=== PATIENT | female | born 1975 | race Caucasian/White ===

== ENCOUNTER 2018-07-31 05:45 | Observation (INO) | payer BC ==
[~2018-07-31] VITALS: Ht 165.1 cm; Wt 99.8 kg
[~2018-07-31 05:45] MED LIST: ARMOUR THYROID60 MG PO; BUSPIRONE HCL5 MG PO; CLONAZEPAM0.5 MG PO; FAMOTIDINE20 MG PO; NEXIUM40 MG PO; ONDANSETRON2 MG/1 ML PO; PROMETHAZINE HC25 M1 PO; SUCRALFATE1 GM PO
--- OUTSIDE RECORDS SUMMARY | 2018-07-31 05:49 | XMS REPORT | Clinical Summary ---
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 Active thyroid,pork (ARMOUR Take 0.5 mg 0 THYROID ORAL) by mouth. Active SAXENDA 3 mg/0.5 mL (18 INJ 3 MG 0 mg/3 mL) pen injector SUBCUTANEOUSL 8 Y QD FOR 90 DAYS 08/12/2018 Active sucralfate (CARAFATE) 1 Take 1 tablet 120 tablet 0 gram tablet (1 g total) 9 by mouth 4 (four) times a day for 30 days. 08/12/2018 Active promethazine (PHENERGAN) Take 1 tablet 20 tablet 0 12.5 MG tablet (12.5 mg 9 total) by mouth nightly as needed for nausea or vomiting for up to 30 days. 07/13/2019 Active famotidine (PEPCID) 40 MG Take 1 tablet 60 tablet 0 tablet (40 mg total) 9 by mouth 2 (two) times a day. Active esomeprazole (NexIUM) 40 Take 1 60 capsule 0 MG capsule capsule (40 9 mg total) by mouth 2 (two) times a day. 10/24/2018 Active sertraline (ZOLOFT) 25 MG Take 1 tablet 30 tablet 2 tabletIndications: (25 mg total) 9 Anxiety, Insomnia due to by mouth other mental disorder nightly for 90 days. 08/10/2018 Active zolpidem CR (AMBIEN CR) Take 1 tablet 15 tablet 1 6.25 MG CR (6.25 mg 9 tabletIndications: total) by Insomnia due to other mouth nightly mental disorder as needed for sleep for up to 15 days. 05/08/2018 Discontinued gabapentin 300 mg tablet Take 600 mg 0 extended release 24 hr by mouth 3 (three) times a day. 12/19/2017 Discontinued amLODIPine (NORVASC) 5 mg Take 5 mg by 0 tablet mouth every morning. 12/27/2017 Discontinued estradiol (ESTRACE) 1 MG Take 1 mg by 0 tablet mouth nightly. 12/27/2017 Discontinued amphetamine-dextroampheta Take 20 mg by 0 mine XR (ADDERALL XR) 20 mouth every MG 24 hr capsule morning. 12/19/2017 Discontinued losartan-hydrochlorothiaz Take 1 tablet 0 mellissa (HYZAAR) 50-12.5 mg by mouth per tablet daily. 12/19/2017 Discontinued esomeprazole (NexIUM) 20 Take 20 mg by 0 MG capsule mouth daily before breakfast. 12/27/2017 Discontinued morPHINE (MSIR) 15 MG TK 1 T PO TID 0 tablet PRN FOR 8 BREAKTHROUGH PAIN 12/27/2017 Discontinued phentermine (ADIPEX-P) TAKE ONE-HALF 3 37.5 mg tablet (1/2) 8 TABLET(S) BY MOUTH EVERY DAY. 12/27/2017 Discontinued LYRICA 100 mg capsule TK 1 C PO TID 0 8 01/04/2018 Discontinued liraglutide (SAXENDA Inject 3 mg 0 SUBQ) under the skin. 12/19/2017 Discontinued levothyroxine (SYNTHROID, Take 75 mcg 0 LEVOXYL) 75 mcg tablet by mouth every morning. 05/08/2018 Discontinued oxyCODone (ROXICODONE) 10 Take 10 mg by 0 MG tablet mouth 3 (three) times a day as needed. 05/08/2018 Discontinued tiZANidine (ZANAFLEX) 4 Take 4 mg by 0 MG tablet mouth 3 (three) times a day. 05/08/2018 Discontinued liothyronine (CYTOMEL) 5 Take 5 mcg by 0 MCG tablet mouth daily. 01/24/2018 Discontinued amLODIPine (NORVASC) 5 mg Take 1 tablet 90 tablet 1 tabletIndications: (5 mg total) 8 Essential hypertension by mouth every morning for 180 days. 01/04/2018 Discontinued esomeprazole (NexIUM) 20 Take 1 90 capsule 1 MG capsuleIndications: capsule (20 8 Gastroesophageal reflux mg total) by disease with esophagitis mouth daily before breakfast for 180 days. 05/08/2018 Discontinued levothyroxine (SYNTHROID, Take 1 tablet 90 tablet 1 LEVOXYL) 75 mcg (75 mcg 8 tabletIndications: total) by Hypothyroidism due to mouth every Dexter's thyroiditis morning for 180 days. 01/24/2018 Discontinued losartan-hydrochlorothiaz Take 1 tablet 90 tablet 1 mellissa (HYZAAR) 50-12.5 mg by mouth 8 per tabletIndications: daily for 180 Essential hypertension days. 05/08/2018 Discontinued DULoxetine (CYMBALTA) 60 Take 1 1 MG capsule capsule by 8 mouth daily. 02/03/2018 apixaban (ELIQUIS) 5 mg follow 74 tablet 5 (74 tabs) tablets,dose package 8 pack instructions 01/24/2018 Discontinued lidocaine (LIDODERM) 5 % Place 1 patch 30 patch 0 on the skin 8 daily for 30 days. Remove & Discard patch within 12 hours or as directed by 01/12/2018 cephalexin (KEFLEX) 500 Take 1 14 capsule 0 MG capsule capsule (500 8 mg total) by mouth 2 (two) times a day for 7 days. 01/24/2018 Discontinued acetaminophen-codeine TK 1 TO 2 TS 0 (TYLENOL WITH CODEINE #3) PO Q 4 TO 6 H 8 300-30 mg per tablet PRF MODERATE TO SEVERE PAIN 01/11/2018 Discontinued phenazopyridine Take 200 mg 0 (PYRIDIUM) 200 MG tablet by mouth. 4 01/11/2018 Discontinued sertraline (ZOLOFT) 25 MG Take 25 mg by 0 tablet mouth. 3 01/24/2018 Discontinued traMADol (ULTRAM) 50 mg Take 50 mg by 0 tablet mouth. 4 07/13/2018 Discontinued valACYclovir (VALTREX) Take 500 mg 0 500 MG tablet by mouth 3 daily as needed. 01/11/2018 Discontinued venlafaxine XR Take 37.5 mg 0 (EFFEXOR-XR) 37.5 MG 24 by mouth. 3 hr capsule 01/25/2018 Discontinued doxylamine (UNISON) 25 mg Take 2 30 tablet 0 tabletIndications: tablets (50 8 Insomnia due to medical mg total) by condition mouth nightly as needed for sleep for up to 30 days. May use 1 tablet. 02/10/2018 triamcinolone (KENALOG) Apply 30 g 0 0.1 % creamIndications: topically 2 8 Irritant dermatitis (two) times a day for 30 days. 2018 Discontinued sennosides-docusate Take 2 60 tablet 1 sodium (SENNA WITH tablets by 8 DOCUSATE SODIUM) 8.6-50 mouth nightly mg per tablet as needed for constipation. 04/05/2018 Discontinued polyethylene glycol Take 17 g by 30 packet 1 (MIRALAX) 17 gram packet mouth daily 8 as needed for constipation. 01/26/2018 Discontinued FLUCELVAX QUAD 3436-4912 0 60 mcg (15 mcg x 4)/0.5 8 mL suspension 07/24/2018 Discontinued M-M-R II, PF, 0 1,000-12,500 TCID50/0.5 8 mL injection 04/25/2018 Discontinued amitriptyline (ELAVIL) 50 Take 1 tablet 90 tablet 1 MG tabletIndications: (50 mg total) 8 Insomnia due to medical by mouth condition nightly. 03/27/2018 ferrous gluconate Take 1 tablet 15 tablet 1 (FERGON) 324 MG (324 mg 8 tabletIndications: BRBPR total) by (bright red blood per mouth every rectum) other day for 60 days. 05/08/2018 Discontinued sennosides-docusate Take 2 180 tablet 0 sodium (SENNA WITH tablets by 9 DOCUSATE SODIUM) 8.6-50 mouth nightly mg per tablet as needed for constipation. 05/08/2018 Discontinued polyethylene glycol Take 17 g by 30 packet 1 (MIRALAX) 17 gram packet mouth daily 9 as needed for constipation. 06/05/2018 Discontinued amitriptyline (ELAVIL) 50 TAKE 1 90 tablet 0 MG tabletIndications: TABLET(50 MG) 9 Insomnia due to medical BY MOUTH condition EVERY NIGHT 05/08/2018 Discontinued RN MATERNITY THYROID 30 mg tablet 1 tablet 2 daily. 9 05/08/2018 Discontinued RN MATERNITY THYROID 15 mg tablet 1 tablet 2 daily. 9 07/13/2018 Discontinued ELIQUIS 5 mg tablet 1 tablet 2 0 (two) times a 9 day. 07/13/2018 Discontinued esomeprazole (NexIUM) 20 1 capsule 1 MG capsule daily. 9 05/15/2018 ondansetron (ZOFRAN) 4 MG Take 1 tablet 21 tablet 0 tabletIndications: Nausea (4 mg total) 9 by mouth every 8 (eight) hours as needed for nausea or vomiting for up to 7 days. 06/07/2018 hydrOXYzine (ATARAX) 25 Take 1 tablet 90 tablet 0 MG tabletIndications: (25 mg total) 9 Anxiety by mouth every 8 (eight) hours as needed for itching or anxiety for up to 30 days. 07/13/2018 Discontinued amitriptyline (ELAVIL) 50 TAKE 1 90 tablet 1 MG tabletIndications: TABLET(50 MG) 9 Insomnia due to medical BY MOUTH condition EVERY NIGHT 07/13/2018 Discontinued esomeprazole (NexIUM) 40 Take 1 60 capsule 0 MG capsule capsule (40 9 mg total) by mouth daily. 07/23/2018 ondansetron ODT (ZOFRAN Take 1 tablet 30 tablet 0 ODT) 4 MG disintegrating (4 mg total) 9 tablet by mouth every 8 (eight) hours as needed for nausea or vomiting for up to 10 days. 07/26/2018 Discontinued busPIRone (BUSPAR) 7.5 MG Take 1 tablet 90 tablet 1 tabletIndications: (7.5 mg 9 Anxiety about health total) by mouth 3 (three) times a day. 07/26/2018 Discontinued clonAZEPAM (KlonoPIN) 0.5 Take 1 tablet 15 tablet 0 MG tabletIndications: (0.5 mg 9 Anxiety about health total) by mouth nightly as needed for anxiety for up to 15 days. Status Hospital, Clinic, or Ordered Dose Route Frequency Start End Date Other Facility Date Administered Medication Ended keTOROlac (TORadol) 60 mg IM once 05/09/19 injection 60 19 9 mgIndications: Migraine with aura and with status migrainosus, not intractable Active Problems Problem Noted Date Attention deficit hyperactivity disorder (ADHD), predominantly inattentive 07/24/2018 type Anxiety about health 07/24/2018 Chest pain on breathing 01/24/2018 Pulmonary emboli 01/05/2018 Pulmonary embolus 01/04/2018 Last Assessment & Plan: The patient has surgery provoked PE. She will need anticoagulation for 6 months (through Jul 04 2018.) Discussed natural resolution and advised against flying to [place] at this time. 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 Will follow up post surgery General weight loss/lifestyle modification strategies discussed (elicit support from others; identify saboteurs; non-food rewards, etc). Essential hypertension 04/13/2017 Spinal stenosis at L4-L5 level 05/08/2014 Resolved Problems Problem Noted Date Resolved Date Rectal bleeding 02/13/2017 12/19/2017 Tobacco abuse 11/14/2011 12/19/2017 Breast nodule 11/14/2011 12/19/2017 Encounters Care Team Description Date Type Specialty Edgar Jones MD Anxiety (Primary Dx); Insomnia due to other mental disorder 07/26/2018 Orders Only Internal Medicine Edgar Jones MD Anxiety about health (Primary Dx); Attention deficit hyperactivity disorder (ADHD), predominantly inattentive type; Hiatal hernia 07/24/2018 Office Visit Internal Medicine Mabel Deal MD Gastroesophageal reflux disease with esophagitis (Primary Dx); Hiatal hernia 07/13/2018 Office Visit Internal Medicine Yuridia Raman, PARTHA 07/13/2018 Telephone Access Yuridia Raman RN 07/13/2018 Nurse Triage Access [facility] [place] 07/04/2018 Telephone Family Medicine Edgar Jones MD 06/29/2018 Telephone Family Medicine Edgar Jones MD Insomnia due to medical condition 06/05/2018 Refill Internal Medicine Michelle Bone MD Edema, unspecified type 05/24/2018 Hospital Procedural Cardiology Encounter Edgar Jones MD Cervicalgia (Primary Dx); Occipital neuralgia of left side; Nausea; Anxiety; Migraine with aura and with status migrainosus, not intractable 05/08/2018 Office Visit Internal Medicine Yuridia Raman RN 05/05/2018 Telephone Access Yuridia Raman RN 05/05/2018 Nurse Triage Access Edgar Jones MD Insomnia due to medical condition 04/25/2018 Refill Internal Medicine Nell Houston 2018 Refill Family Medicine Edgar Jones MD 2018 Refill Family Medicine Michelle Bone MD Edema, unspecified type (Primary Dx) 02/28/2018 Transcribe Access Orders Michelle Bone MD Acute bronchitis, unspecified organism 02/16/2018 Hospital Radiology Encounter Nell [facility] 02/16/2018 Telephone Family Medicine Michelle Bone MD Acute bronchitis, unspecified organism (Primary Dx) 02/16/2018 Transcribe Access Orders Yanci Logan RN 01/27/2018 Documentation General Surgery Edgar Jones MD Pleurisy without effusion (Primary Dx); BRBPR (bright red blood per rectum); Fatigue due to sleep pattern disturbance; Suture check 01/26/2018 Office Visit Internal Medicine Graciela Barth MA Insomnia due to medical condition (Primary Dx) 01/25/2018 Telephone Internal Medicine Ruzi Johnston MD Yerramadha, Muralidhar Reddy, MD Chest pain on breathing (Primary Dx); BRBPR (bright red blood per rectum); Pleuritic chest pain; Anticoagulated by anticoagulation treatment; Anemia, unspecified type 01/24/2018 Emergency Emergency Medicine 01/24/2018 Travel Edgar Jones MD Constipation in female (Primary Dx) 01/23/2018 Orders Only Internal Medicine Patti Lambert RN 01/23/2018 Nurse Triage Access Jean-Paul Godoy MD Chronic pain syndrome (Primary Dx) 01/13/2018 Office Visit Edgar Juan MD Hospital discharge follow-up (Primary Dx); Chronic bilateral low back pain without sciatica; Essential hypertension; Other acute pulmonary embolism without acute cor pulmonale (HCC); Insomnia due to medical condition; Irritant dermatitis 01/11/2018 Office Visit Internal Medicine Edgar Jones MD 01/09/2018 Telephone Family Medicine Naresh Johnson, PharmD 01/09/2018 Patient Quality Outreach Edgar Jones MD 01/09/2018 Telephone Family Medicine Graciela Barth MA 01/06/2018 Orders Only Internal Medicine Nikki Bautista MD Yerramadha, Muralidhar Reddy, MD Other acute pulmonary embolism without acute cor pulmonale (HCC) (Primary Dx); Urinary tract infection without hematuria, site unspecified; RUQ pain; Essential hypertension; Dorsalgia of lumbosacral region; Morbid obesity due to excess calories (HCC); Chronic pain syndrome; Chronic bilateral low back pain without sciatica 01/04/2018 Hospital General Internal Medicine - Encounter 01/05/2018 Graciela Barth MA 01/04/2018 Telephone Internal Medicine Ольга Adams RN 01/04/2018 Nurse Triage Access Jean-Paul Godoy MD THORACIC LAMINECTOMY FOR SPINAL CORD STIMULATOR IMPLANT 12/28/2017 Surgery General Surgery Pura Cano FNP-C 12/28/2017 Anesthesia General Surgery Event Jean-Paul Godoy MD 12/28/2017 Hospital General Surgery Encounter Jean-Paul Godoy MD Chronic pain syndrome (Primary Dx); Chronic bilateral low back pain without sciatica; Lumbar degenerative disc disease; History of fusion of lumbar spine 12/26/2017 Orders Only Edgar Juan MD 12/20/2017 Telephone Internal Medicine Edgar Jones MD Pre-operative clearance for spinal stimulator placement for chronic lumbar dorsalgia. 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; Essential hypertension; Gastroesophageal reflux disease with esophagitis; Cold sore 12/19/2017 Office Visit Internal Medicine Jean-Paul Godoy MD Chronic pain syndrome (Primary Dx); Chronic bilateral low back pain without sciatica 12/15/2017 Office Visit Neurosurgery Jean-Paul Godoy MD Lumbar degenerative disc disease (Primary Dx); Chronic bilateral low back pain, with sciatica presence unspecified; History of fusion of lumbar spine 10/20/2017 Office Visit Neurosurgery [facility] Baldo 10/06/2017 Telephone Neurosurgery Stephania Peres NP Bilateral lumbar radiculopathy (Primary Dx); Chronic bilateral low back pain with bilateral sciatica 09/23/2017 Orders Only Neurosurgery Karen Gaming MD West, George Alexander, MD Chronic bilateral low back pain with bilateral sciatica; Bilateral lumbar radiculopathy 09/20/2017 Hospital Radiology Encounter Jean-Paul Godoy MD Chronic bilateral low back pain with bilateral sciatica (Primary Dx); Bilateral lumbar radiculopathy 09/16/2017 Consult Neurosurgery Emiliano Oquendo MD Swelling of left lower extremity (Primary Dx) 08/01/2017 Emergency Emergency Medicine after 07/30/2017 Immunizations Name Dates Previously Given Next Due INFLUENZA QUAD 01/20/2018 Family History Medical History Relation Name Comments Heart disease Father Hyperlipidemia Father Hypertension Father Stroke Father Breast cancer Mother Hyperlipidemia Mother Hypertension Mother Relation Name Status Comments Father Alive Mother Alive Social History Date Tobacco Use Types Packs/Day Years Used Current Every Day Smoker Cigarettes, 0.25 20 Electronic Cigarettes Smokeless Tobacco: Never Used Tobacco Cessation: Ready to Quit: No Comments: 2-3 cig per day Alcohol Use Drinks/Week oz/Week Comments Yes rarely Sex Assigned at Date Recorded Not on file Industry Job Start Date Occupation Not on file Not on file Not on file Travel End Travel History Travel Start No recent travel history available. Last Filed Vital Signs Time Taken Vital Sign Reading 07/24/2018 11:17 AM CDT Blood Pressure 128/91 07/24/2018 11:17 AM CDT Pulse 96 07/13/2018 1:42 PM CDT Temperature 37 C (98.6 F) 01/24/2018 7:56 PM [employer] Respiratory Rate 18 07/13/2018 1:42 PM CDT Oxygen Saturation 99% - Inhaled Oxygen - Concentration 07/24/2018 11:17 AM CDT Weight 96.7 kg (213 lb 3.2 oz) 07/24/2018 11:17 AM CDT Height 162.6 cm (5' 4") 07/24/2018 11:17 AM CDT Body Mass Index 36.6 Plan of Treatment Health Maintenance Due Date Last Done Comments INFLUENZA VACCINE 09/07/2018 01/20/2018 Implants Device Identifier Shelf Expiration Date Model / Serial / Lot Implanted Type Area Manufactur er 10/10/2019 [place] 1160 / / [id number] Wavewriter Implantable Pulse G - IPM N/A: [employer] [id number] IMPLANT SCIENTIFIC Implanted: Qty: 1 on 12/28/2017 by DEVICES - Jean-Paul Godoy MD NEUROMODUL ATION 07/14/2019 [place] 8336 50 / / [id number] Kit Surgl Lead 50cm 32contact - IPM N/A: [employer] [id number] IMPLANT SCIENTIFIC Implanted: Qty: 1 on 12/28/2017 by JOAN - Jean-Paul Godoy MD NEUROMODUL ATION Stimulator Stimulator Surgical Implants - Breast Surgical Implants - Breast 05/17/2018 FGS [id number] / / [id number] Capsule Ph W/ Ds Mckay - [id number] Surgical N/A: N/A GIVEN Implanted: 06/22/2017 (Quantity not Implants; IMAGING on file) Expanders; Extenders; Surgical Wires Procedures Comments Procedure Name Priority Date/Time Associated Diagnosis US DUPLEX VENOUS LOWER Routine 05/24/2018 Edema, unspecified type EXTREMITY BILATERAL 5:57 PM CDT XR CHEST 2 VW Routine 02/16/2018 Acute bronchitis, 12:16 PM [employer] WORK[employer] unspecified organism CT ANGIOGRAM PE CHEST STAT 01/24/2018 7:04 PM [employer]ODUCTION WORKER TROPONIN Timed 01/24/2018 4:58 PM [employer] WORKER US DUPLEX VENOUS LOWER STAT 01/24/2018 EXTREMITY BILATERAL 3:45 PM [employer]AG [employer]ODUCTION WORKER HCG QUALITATIVE, URINE Routine 01/24/2018 SCREEN 2:45 PM [employer]AG [employer]ODUCTION WORKER URINALYSIS SCREEN AND Routine 01/24/2018 MICROSCOPY, WITH REFLEX 2:45 PM RAG [employer]ODUCTION WORKER TO CULTURE XR CHEST 1 VW PORTABLE STAT 01/24/2018 2:36 PM RAG [employer]ODUCTION WORKER ECG ED PRELIMINARY Routine 01/24/2018 INTERPRETATION 2:12 PM [employer]AG PRODUCTION WORKER ESTIMATED GFR STAT 01/24/2018 1:50 PM RAG [employer]ODUCTION WORKER PROTHROMBIN TIME WITH INR STAT 01/24/2018 1:50 PM [employer]AG [employer]ODUCTION WORKER PARTIAL THROMBOPLASTIN STAT 01/24/2018 TIME (PTT) 1:50 PM RAG [employer]ODUCTION WORKER B NATRIURETIC PEPTIDE STAT 01/24/2018 1:50 PM RAG [employer]ODUCTION WORKER TROPONIN STAT 01/24/2018 1:50 PM [employer]AG [employer]ODUCTION WORKER COMPREHENSIVE METABOLIC STAT 01/24/2018 PANEL 1:50 PM RAG [employer]ODUCTION WORKER HC COMPLETE BLD COUNT STAT 01/24/2018 W/AUTO DIFF 1:50 PM RAG [employer]ODUCTION WORKER ECG 12-LEAD STAT 01/24/2018 1:42 PM [employer]ODUCTION WORKER US DUPLEX VENOUS LOWER STAT 01/05/2018 EXTREMITY BILATERAL 6:00 PM [employer]AG [employer]ODUCTION WORKER ECHOCARDIOGRAM 2D Routine 01/05/2018 COMPLETE W MMODE SPECTRAL 11:11 AM RAG PRODUCTION WORKER COLOR DOPPLER ([id number]) TROPONIN Timed 01/04/2018 10:00 PM [employer]AG [employer]ODUCTION WORKER TROPONIN Timed 01/04/2018 6:[address] ANGIOGRAM PE CHEST STAT 01/04/2018 12:[address] ABDOMEN PELVIS W STAT 01/04/2018 CONTRAST 12:12 PM RAG [employer]ODUCTION WORKER ESTIMATED GFR STAT 01/04/2018 10:35 AM RAG PRODUCTION WORKER B NATRIURETIC PEPTIDE STAT 01/04/2018 10:35 AM RAG PRODUCTION WORKER TROPONIN STAT 01/04/2018 10:35 AM RAG [employer]ODUCTION WORKER CREATINE KINASE, TOTAL STAT 01/04/2018 (CPK) 10:35 AM RAG [employer]ODUCTION WORKER COMPREHENSIVE METABOLIC STAT 01/04/2018 PANEL 10:35 AM RAG [employer]ODUCTION WORKER HC COMPLETE BLD COUNT STAT 01/04/2018 W/AUTO DIFF 10:35 AM RAG PRODUCTION WORKER XR CHEST 2 VW STAT 01/04/2018 10:30 AM RAG [employer]ODUCTION WORKER URINALYSIS SCREEN AND STAT 01/04/2018 MICROSCOPY, WITH REFLEX 10:28 AM RAG [employer]ODUCTION WORKER TO CULTURE GRAM STAIN STAT 01/04/2018 10:28 AM RAG [employer]ODUCTION WORKER URINE CULTURE STAT 01/04/2018 10:28 AM RAG [employer]ODUCTION WORKER ECG ED PRELIMINARY Routine 01/04/2018 INTERPRETATION 10:04 AM RAG [employer]ODUCTION WORKER MO CRITICAL CARE, E/M Routine 01/04/2018 30-74 MINUTES 10:04 AM RAG PRODUCTION WORKER ECG 12-LEAD STAT 01/04/2018 9:59 AM RAG PRODUCTION WORKER OR FL > 1 HOUR Routine 12/28/2017 9:00 AM RAG [employer]ODUCTION WORKER MO AN ELECTIVE Routine 12/28/2017 ENDOTRACHEAL AIRWAY 7:55 AM RAG [employer]ODUCTION WORKER Procedure Note - Tran Dougherty CRNA - 12/28/2017 7:55 AM RAG [employer]ODUCTION WORKER ANESTHESIA INTUBATION Date/Time: 12/28/2017 7:36 AM Performed by: Tran Dougherty CRNA Authorized by: Andrey De Souza MD Location: OR Urgency: Elective Difficult Airway: No Preoxygena loretta with 100% O2: Yes C-spine Precaution s Maintained Throughout : Yes Mask Ventilatio n: Not attempted Final Airway Type: Endotrache al airway Final Endotrache al Airway: ETT Cuffed: Yes Technique Used: Direct laryngosco py Insertion Site: Oral Blade Type: Desai Laryngosco pe Blade/Vide olaryngosc ope Blade Size: 2 ETT Size (mm): 7.0 Cuff at minimum occlusion pressure: Yes Measured from: Lips ETT to Lips (cm): 20 Placement Verified by: CO2 detection, direct visualizat ion and equal breath sounds Laryngosco pic view: Grade I - full view of glottis Rapid Sequence Induction (RSI): No Modified RSI: No Number of Attempts at Approach: 1 TSH REFLEX TO T4F Routine 12/19/2017 Pre-operative clearance 11:45 AM RAG PRODUCTION WORKER for spinal stimulator placement for chronic lumbar dorsalgia. 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 PROTHROMBIN TIME WITH INR Routine 12/19/2017 Pre-operative clearance 11:41 AM RAG PRODUCTION WORKER for spinal stimulator placement for chronic lumbar dorsalgia. PARTIAL THROMBOPLASTIN Routine 12/19/2017 Pre-operative clearance TIME (PTT) 11:41 AM RAG PRODUCTION WORKER for spinal stimulator placement for chronic lumbar dorsalgia. COMPREHENSIVE METABOLIC Routine 12/19/2017 Pre-operative clearance PANEL 11:41 AM RAG PRODUCTION WORKER for spinal stimulator placement for chronic lumbar dorsalgia. CBC WITH PLATELET AND Routine 12/19/2017 Pre-operative clearance DIFFERENTIAL 11:41 AM RAG PRODUCTION WORKER for spinal stimulator placement for chronic lumbar dorsalgia. XR CHEST 2 VW Routine 12/19/2017 Pre-operative clearance 11:26 AM RAG [employer]ODUCTION WORKER XR LUMBAR SPINE AP Routine 09/20/2017 Chronic bilateral low LATERAL FLEXION AND 3:03 PM CDT back pain with bilateral EXTENSION sciatica Bilateral lumbar radiculopathy US DUPLEX VENOUS LOWER Routine 08/01/2017 EXTREMITY BILATERAL 3:15 PM CDT after 07/30/2017 Results * Us duplex venous lower extremity (05/24/2018 5:57 PM CDT) Only the most recent of 4 results within the time period is included. Specimen Narrative Performed At [email or web address] There is no evidence of DVT in bilateral lower extremities. Performing Organization Address City/State/Zipcode Phone Number [email or web address] [place] [address] * XR Chest 2 Vw (02/16/2018 12:16 PM RAG PRODUCTION WORKER) Only the most recent of 3 results within the time period is included. Specimen Narrative Performed At EXAMINATION:XR CHEST 2 VW RADIANT CLINICAL HISTORY: 42 years [id number] Acute bronchitisunspecified, acute bronchitis COMPARISON:01/24/2018 IMPRESSION: 1.The heart size is normal. The aorta is minimally atherosclerotic. 2.There is no evidence of pulmonary edema. There are no focal consolidations or effusions. 3.Moderate hiatal hernia. 4.Dorsal column stimulator device overlies the mid thoracic spine. Procedure Note Interface, Radiology Results Incoming - 02/16/2018 1:12 PM RAG PRODUCTION WORKER EXAMINATION: XR CHEST 2 VW CLINICAL HISTORY: 42 years Female J20.9 Acute bronchitis unspecified, acute bronchitis COMPARISON: 01/24/2018 IMPRESSION: 1. The heart size is normal. The aorta is minimally atherosclerotic. 2. There is no evidence of pulmonary edema. There are no focal consolidations or effusions. 3. Moderate hiatal hernia. 4. Dorsal column stimulator device overlies the mid thoracic spine. Performing Organization Address City/State/Zipcode Phone Number RADHA [address] [place] [address] * CT Angiogram Pe Chest (01/24/2018 7:04 PM RAG PRODUCTION WORKER) Only the most recent of 2 results within the time period is included. Specimen Narrative Performed At EXAMINATION: [facility] CT ANGIOGRAM PE CHEST CLINICAL HISTORY: left chest pleuritic painrecent dx PE TECHNIQUE: CT angiographic images of the chest were obtained during intravenous administration of iodinated contrast. Computerized reformatted images and 3-D MIP images were also obtained and archived (CT pulmonary embolus protocol). CT imaging was performed with iterative reconstruction techniques and/or automated exposure control to reduce radiation dose. COMPARISON: 01/04/2018 IMPRESSION: 1.There are no pulmonary emboli. Previously seen embolus in the left upper lobe has resolved. 2.There is a large hiatal hernia which causes mild compressive atelectasis in the left lower lobe. 3.Minor dependent bilateral groundglass probably reflects suboptimal inspiration. There is no acute consolidation or suspicious pulmonary nodule. 4.No pleural or pericardial effusion is seen. 5.The heart size is normal. 6.There is no thoracic lymphadenopathy. 7.There is no significant upper abdominal imaging finding. 8.Bilateral breast implants are noted. 9.No significant skeletal abnormality is seen. Spine stimulator device again noted. [id number] Procedure Note Interface, Radiology Results Incoming - 01/24/2018 7:12 PM RAG PRODUCTION WORKER EXAMINATION: CT ANGIOGRAM PE CHEST CLINICAL HISTORY: left chest pleuritic pain recent dx PE TECHNIQUE: CT angiographic images of the chest were obtained during intravenous administration of iodinated contrast. Computerized reformatted images and 3-D MIP images were also obtained and archived (CT pulmonary embolus protocol). CT imaging was performed with iterative reconstruction techniques and/or automated exposure control to reduce radiation dose. COMPARISON: 01/04/2018 IMPRESSION: 1. There are no pulmonary emboli. Previously seen embolus in the left upper lobe has resolved. 2. There is a large hiatal hernia which causes mild compressive atelectasis in the left lower lobe. 3. Minor dependent bilateral groundglass probably reflects suboptimal inspiration. There is no acute consolidation or suspicious pulmonary nodule. 4. No pleural or pericardial effusion is seen. 5. The heart size is normal. 6. There is no thoracic lymphadenopathy. 7. There is no significant upper abdominal imaging finding. 8. Bilateral breast implants are noted. 9. No significant skeletal abnormality is seen. Spine stimulator device again noted. [facility]-[id number] Performing Organization Address City/[facility]/Zipcode Phone Number RADIANT [address] [place] [address] * Troponin (01/24/2018 4:58 PM RAG PRODUCTION WORKER) Only the most recent of 5 results within the time period is included. [facility] Troponin <0.300 0.000 - 0.300 ng/mL ORIENT Comment: [facility] 0.30 - 1.49 [facility] ng/mlMay indicate increased risk of acute coronary syndrome. >=1.5 ng/ml Consistent with acute myocardial infarction. The diagnostic value of a single normal or non-diagnostic result is questionable.Serial samples at 2-6 hour intervals are required to rule out acute myocardial injury. Specimen Plasma specimen Performing Organization Address City/[facility] [place] [address] [place] [address] PATHOLOGY AND GENOMIC MEDICINE [facility] [address] [place] [address] [facility] * Urinalysis screen and microscopy, with reflex to culture (01/24/2018 2:45 PM RAG PRODUCTION WORKER) Only the most recent of 2 results within the time period is included. Pathologist [facility] Specimen site Clean catch [facility] Color, UA Yellow [facility] Appearance, UA Clear [facility] Specific 1.013 1.001 - 1.035 ORIENT gravity, UA [facility] pH, UA 6.0 5.0 - 8.5 [facility] Protein, UA Negative Negative [facility] Glucose, UA Negative Negative [facility] Ketones, UA Negative Negative [facility] Bilirubin, UA Negative Negative [facility] Blood, UA Negative Negative [facility] Nitrite, UA Negative Negative [facility] Urobilinogen, Negative <2.0 [facility] Leukocyte Negative Negative ORIENT esterase, UA [facility] Epithelial Few /HPF ORIENT cells, UA [facility] Round Few 0 - 1 /HPF ORIENT epithelial [facility] cells, [facility] WBC, UA 0-5 0 - 4 /HPF [facility] RBC, UA 0-5 0 - 5 /HPF [facility] Bacteria, UA Trace None seen [facility] Yeast, UA None seen [facility] Yeast with None seen [facility] Specimen Urine Performing Organization Address [facility] Phone Number [address] [place] [address] PATHOLOGY AND GENOMIC MEDICINE [address] * hCG qualitative, urine screen (01/24/2018 2:45 PM RAG PRODUCTION WORKER) hCG Negative Negative ORIENT qualitative, Comment: [facility] urine The manufacturers stated [facility] sensitivity of HcG test for serum is >/=10 mIU/ml and urine is >/=20mIU/ml. Specimen Urine Performing Organization Address [facility] Phone Number [address] [place] [address] PATHOLOGY AND GENOMIC MEDICINE [address] * XR Chest 1 Vw Portable (01/24/2018 2:36 PM RAG PRODUCTION WORKER) Specimen Narrative Performed At EXAMINATION:XR CHEST 1 VW PORTABLE [facility] CLINICAL HISTORY:chest pain COMPARISON:January 04, 2018 FINDINGS: Intraspinal stimulator is noted projecting in the midthoracic spine unchanged from the prior study. A moderately large hiatal hernia also is noted projecting behind the heart and left lower lobe area. The heart size is borderline accentuated by AP technique. The mediastinum is otherwise unremarkable. The lungs are clear. IMPRESSION: 1. The heart is enlarged. 2. Moderately large hiatal hernia no acute finding is visualized [id number] Procedure Note Hm Interface, Radiology Results Incoming - 01/24/2018 2:48 PM RAG PRODUCTION WORKER EXAMINATION: XR CHEST 1 VW PORTABLE CLINICAL HISTORY: chest pain COMPARISON: January 04, 2018 FINDINGS: Intraspinal stimulator is noted projecting in the midthoracic spine unchanged from the prior study. A moderately large hiatal hernia also is noted projecting behind the heart and left lower lobe area. The heart size is borderline accentuated by AP technique. The mediastinum is otherwise unremarkable. The lungs are clear. IMPRESSION: 1. The heart is enlarged. 2. Moderately large hiatal hernia no acute finding is visualized [id number] Performing Organization Address City/State/Zipcode Phone Number [facility] [address] [place] [address] * ECG ED Preliminary Interpretation - Not an Order (01/24/2018 2:12 PM RAG PRODUCTION WORKER) Only the most recent of 2 results within the time period is included. Narrative Performed At Ruiz Johnston MD 01/25/20181:54 AM ECG ED Preliminary Interpretation - Not an Order Performed by: Ruiz Johnston MD Authorized by: Ruiz Johnston MD ECG reviewed by ED Physician in the absence of a supervising editor trailer: yes (read at 1342) Previous ECG: Previous ECG:Unavailable Interpretation: Interpretation: normal Rate: ECG rate:78 ECG rate assessment: normal Rhythm: Rhythm: sinus rhythm Ectopy: Ectopy: none QRS: QRS axis:Normal QRS intervals:Normal Conduction: Conduction: normal ST segments: ST segments:Normal T waves: T waves: inverted Inverted:AVR, V1 and V2 * Estimated GFR (01/24/2018 1:50 PM RAG PRODUCTION WORKER) Only the most recent of 2 results within the time period is included. Pathologist [facility] Estimated GFR 77 mL/min/1.73 m2 ORIENT Comment: [facility] rpretation G1 >=90 Normal or high G2 60-89Mildly decreased [id number] Mildly to moderately decreased [id number] Moderately to severely decreased G4 15-29Severely decreased G5 <15Kidney failure The eGFR was calculated using the Chronic Kidney Disease Epidemiology Collaboration (CKD-EPI) equation. Interpretation is based on recommendations of the National Kidney Foundation-Kidney Disease Outcomes Quality Initiative (NKF-KDOQI) published in 2014. Specimen Plasma specimen Performing Organization Address [facility] [place] Phone Number [address] * Partial thromboplastin time, activated (01/24/2018 1:50 PM RAG PRODUCTION WORKER) Only the most recent of 2 results within the time period is included. Pathologist [facility] PTT 33.7 23.0 - 36.0 sec ORIENT Comment: [facility] PTT therapeutic range for [facility] unfractionated heparin is 61.0-112.0 seconds which corresponds to Anti-Xa 0.3-0.7 U/ml. Specimen Blood Performing Organization Address [facility] [place] Phone Number [address] * Prothrombin time with INR (01/24/2018 1:50 PM RAG PRODUCTION WORKER) Only the most recent of 2 results within the time period is included. Pathologist [facility] Prothrombin 12.2 11.5 - 14.5 [facility] INR 0.9 ORIENT Comment: [facility] The International Normalized [facility] Ratio (INR) is a therapeutic monitoring tool for patients who are stable on oral anticoagulant therapy. An INR of 2.0-3.0 is suggested for deep vein thrombosis/pulmonary embolism. Specimen Blood Performing Organization Address [facility] [place] Phone Number [address] * CBC with platelet and differential (01/24/2018 1:50 PM RAG PRODUCTION WORKER) Only the most recent of 3 results within the time period is included. Pathologist [facility] WBC 6.71 4.50 - 11.00 k/uL [facility] RBC 3.89 (L) 4.20 - 5.50 m/uL [facility] HGB 10.7 (L) 12.0 - 16.0 g/dL [facility] HCT 34.1 (L) 37.0 - 47.0 % [facility] MCV 87.7 82.0 - 100.0 fL [facility] MCH 27.5 27.0 - 34.0 pg [facility] MCHC 31.4 31.0 - 37.0 g/dL [facility] RDW - SD 49.4 37.0 - 55.0 fL [facility] MPV 10.4 8.8 - 13.2 fL [facility] Platelet count 476 (H) 150 - 400 k/uL [facility] Nucleated RBC 0.00 /100 WBC [facility] Neutrophils 41.7 39.0 - 69.0 % [facility] Lymphocytes 36.8 25.0 - 45.0 % [facility] Monocytes 12.8 (H) 0.0 - 10.0 % [facility] Eosinophils 7.6 (H) 0.0 - 5.0 % [facility] Basophils 1.0 0.0 - 1.0 % [facility] Specimen Blood Performing Organization Address City/[facility]/Zipcode Phone Number [address] [place] [address] PATHOLOGY AND GENOMIC MEDICINE [address] * B natriuretic peptide (01/24/2018 1:50 PM RAG PRODUCTION WORKER) Only the most recent of 2 results within the time period is included. BNP 41 0 - 100 pg/mL [facility] Specimen Blood Performing Organization Address City/[facility] Phone Number [address] [place] [address] PATHOLOGY AND GENOMIC MEDICINE [address] * Comprehensive metabolic panel (01/24/2018 1:50 PM RAG PRODUCTION WORKER) Only the most recent of 3 results within the time period is included. [facility] Sodium 140 135 - 148 mEq/L [facility] Potassium 3.9 3.5 - 5.0 mEq/L [facility] Chloride 100 98 - 112 mEq/L [facility] CO2 29 24 - 31 mEq/L [facility] Anion gap 11@ANIO 7 - 15 mEq/L [facility] BUN 13 6 - 20 mg/dL [facility] Creatinine 0.90 0.50 - 0.90 mg/dL [facility] Glucose 84 65 - 99 mg/dL [facility] Calcium 9.7 8.3 - 10.2 mg/dL [facility] Protein 7.5 6.3 - 8.3 g/dL ORIENT Comment: [facility] 4.6-7.0 g/dL 1 week 4.4-7.6 g/dL 7 months-1year 5.1-7.3 g/dL 1-2 years5.6-7 .5 g/dL >3 years6.0-8 .0 g/dL 18-150 6.3-8.3 g/dL Albumin 4.2 3.5 - 5.0 g/dL [facility] A/G ratio 1.3 0.7 - 3.8 [facility] Alkaline 94 35 - 104 U/L ORIENT phosphatase [facility] AST 22 10 - 35 U/L [facility] ALT 20 5 - 50 U/L [facility] Total bilirubin <0.2 0.0 - 1.2 mg/dL [facility] Specimen Plasma specimen Performing Organization Address City/State/Zipcode Phone Number [facility] [id number] [place] [address] [place] [address] PATHOLOGY AND GENOMIC MEDICINE [facility] [id number] [place] [address] [place] [address] [facility] * ECG 12 lead (01/24/2018 1:42 PM RAG PRODUCTION WORKER) Only the most recent of 2 results within the time period is included. Pathologist [facility] Ventricular 78 [facility] MUSE rate Atrial rate 78 [facility] MUSE MO interval 178 [facility] MUSE QRSD interval 76 [facility] MUSE QT interval 390 [facility] MUSE QTC interval 444 [facility] MUSE P axis 1 3 [facility] MUSE QRS axis 1 7 [facility] MUSE T wave axis 30 [facility] MUSE EKG impression Normal sinus rhythm-Normal [facility] MUSE ECG-In automated comparison with ECG of 04-JAN-2018 09:59,-No significant change was found- Specimen Narrative Performed At Performing Organization Address City/State/Zipcode Phone Number [facility] MUSE [address] [place] [address] * Echocardiogram complete w contrast and 3D if needed (01/05/2018 11:11 AM RAG PRODUCTION WORKER) Velocity Ratio 0.78 m/s [facility] (V1/V2) IVS,d 0.67 cm [facility] Ao root annulus 2.73 cm [facility] EF 56.52 % [facility] LA volume 43.00 cm3 [facility] LVPWD,d 0.97 cm [facility] AoV Mean PG 4.29 mmHg [facility] AV LVOT peak 5.66 mmHg [facility] gradient MV valve area p 4.75 cm2 [facility] 1/2 method E/A ratio 1.34 [facility] E wave 159.30 msec [facility] decelartion time LVOT Diam,S 2.16 cm [facility] LVOT area 3.66 cm2 [facility] LVOT Vmax 1.19 m/s [facility] LVOT VTI 0.24 m [facility] AoV Peak PG 9.27 mmHg [facility] MV Peak E Carlos 1.02 m/s [facility] MV stenosis 46.28 ms [facility] pressure 1/2 time MV Peak A Carlos 0.76 m/s [facility] LV Vol,s A2C 30.41 mL [facility] LV Vol,d A2C 68.61 mL [facility] AoV Area, Vmax 2.86 cm2 [facility] AoV Area, VTI 3.16 cm2 [facility] AoV Vmax 1.52 m/s [facility] LA Area d A4C 38 cm2 [facility] LV,d 4.18 cm [facility] LV,s 2.96 cm [facility] LV Vol,d A4C 75.03 ml [facility] LV Vol,s A4C 29.37 ml [facility] RVSP (TR) 31.45 mmHg [facility] TR Vpeak 2.64 mm/s [facility] MV E A ratio 1.35 [facility] RA pressure 5.00 mmHg [facility] TR pk grad 27.83 mmHg [facility] RVSP 31.45 mmHg [facility] LV SYS VOL 33.79 ml [facility] LV MALHOTRA VOL 77.71 ml [facility] LA diam s 3.60 cm [facility] LA Vol MOD A4C 38.44 ml [facility] LV SV Teich 2D 43.92 ml [facility] LVOT SI 45.94 ml/m2 [facility] AoV Cusp sep 1.87 [facility] Aortic Root 2.70 cm [facility] AoV Vmn 0.95 [facility] IVS s 2D 1.11 [facility] LA Ao Ratio 1.33 [facility] Mmode D E excurs 1.40 [facility] E f slope 0.09 [facility] E prime lat 0.12 [facility] E carlos sept 0.12 [facility] PV acc T slope 5.80 [facility] PV AT 134.95 msec [facility] AoV VTI 0.28 m [facility] LV EF,A2C 55.68 % [facility] LV EF,A4C 60.85 % [facility] LV EF,BP 57.43 % [facility] Rashawn Monroe,d A2C 6.22 cm [facility] Rashawn Monroe,d A4C 6.66 cm [facility] Rashawn Monroe,s A2C 4.71 cm [facility] Rashawn Monroe,s A4C 5.27 cm [facility] LV SV,A2C 38.20 % [facility] LV SV,A4C 45.66 % [facility] LV Vol,d BP 74.13 ml [facility] LV Vol,s BP 31.56 nl [facility] LVOT Vmn 0.78 [facility] Pt Size 162.56 [facility] Pt Wt 88.45 [facility] LVOT mean grad 2.76 mmHg [facility] LVPW s PLAX 1.25 cm [facility] MV Decel slope 6.39 m/s2 [facility] Specimen Narrative Performed At [facility] Left ventricular systolic function is normal. Left Ventricular ejection fraction is 60 - 65%. Normal pulmonary artery systolic pressure. RA pressure is normal. Performing Organization Address City/State/Zipcode Phone Number [facility] [address] [place] [address] * CT Abdomen Pelvis W Contrast (01/04/2018 12:12 PM RAG PRODUCTION WORKER) Specimen Narrative Performed At EXAMINATION:CT ABDOMEN PELVIS W CONTRAST [facility] CLINICAL HISTORY: 42 yearsFemale generalized abdominal painrecent surgeryback stimulator TECHNIQUE: Multiple axial images of the abdomen and pelvis were obtained following intravenous administration of iodinated contrast. Sagittal and coronal computerized reformatted images were also obtained. CT imaging was performed with iterative reconstruction techniques and/or automated exposure control to reduce radiation dose. COMPARISON:February 13, 2017 FINDINGS: There is a large hiatal hernia. The liver is mildly enlarged. It measures 19 to 20 cm in length. It is homogeneous in texture. The spleen appears unremarkable. The adrenal glands pancreas and gallbladder appear within normal limits. The kidneys are not obstructed. There appear to be nonobstructing possible lower pole calculi on the left although this is not definitive in this postcontrast study. No large or obstructing stones are identified. The uterus is not visualized and appears to been removed. The ovaries appear unremarkable there is a probable small follicle on the left measuring 16 mm. The appendix appears unremarkable to limits of visualization. The bones demonstrate arthritic changes. There is intraspinal electrode the position of the electrode is not confirmed the pocket for the device is over the right lower abdomen dorsally. Considerable artifact is present no abnormal fluid collections are identified. IMPRESSION: 1. Large hiatal hernia. 2. Mild hepatomegaly. 3. Possible tiny lower pole calculus on the left. 4. Possible small follicle left ovary [id number] Procedure Note Interface, Radiology Results Incoming - 01/04/2018 1:23 PM RAG PRODUCTION WORKER EXAMINATION: CT ABDOMEN PELVIS W CONTRAST CLINICAL HISTORY: 42 yearsFemale generalized abdominal pain recent surgery back stimulator TECHNIQUE: Multiple axial images of the abdomen and pelvis were obtained following intravenous administration of iodinated contrast. Sagittal and coronal computerized reformatted images were also obtained. CT imaging was performed with iterative reconstruction techniques and/or automated exposure control to reduce radiation dose. COMPARISON: February 13, 2017 FINDINGS: There is a large hiatal hernia. The liver is mildly enlarged. It measures 19 to 20 cm in length. It is homogeneous in texture. The spleen appears unremarkable. The adrenal glands pancreas and gallbladder appear within normal limits. The kidneys are not obstructed. There appear to be nonobstructing possible lower pole calculi on the left although this is not definitive in this postcontrast study. No large or obstructing stones are identified. The uterus is not visualized and appears to been removed. The ovaries appear unremarkable there is a probable small follicle on the left measuring 16 mm. The appendix appears unremarkable to limits of visualization. The bones demonstrate arthritic changes. There is intraspinal electrode the position of the electrode is not confirmed the pocket for the device is over the right lower abdomen dorsally. Considerable artifact is present no abnormal fluid collections are identified. IMPRESSION: 1. Large hiatal hernia. 2. Mild hepatomegaly. 3. Possible tiny lower pole calculus on the left. 4. Possible small follicle left ovary [id number] Performing Organization Address [facility]/Zipcode Phone Number [facility] [address] [place] [address] * Creatine kinase, total (CPK) (01/04/2018 10:35 AM RAG PRODUCTION WORKER) Pathologist [facility] Creatine kinase 94 26 - 192 U/L [facility] Specimen Plasma specimen Performing Organization Address [facility]/Zipcode Phone Number [facility] DEPARTMENT [address] [place] [address] PATHOLOGY AND GENOMIC MEDICINE [address] * Gram stain (01/04/2018 10:28 AM RAG PRODUCTION WORKER) Pathologist [facility] Gram stain Few WBC's ALEXANDRE result Occasional Gram negative rods [facility] Comment: HOSPITAL Specimen Information Specimen Source: Urine Specimen Site: Clean catch Specimen Urine Performing Organization Address [facility]/Zipcode Phone Number [facility] DEPARTMENT OF [address] [place] [address] PATHOLOGY AND GENOMIC MEDICINE [address] * Urine culture (01/04/2018 10:28 AM RAG PRODUCTION WORKER) Pathologist [facility] Urine culture Escherichia coli ALEXANDRE isolate >10-5 cfu/ml [facility] Comment: Specimen Information Specimen Source: Urine Specimen Site: Clean catch Specimen Urine Antibiotic Method Susceptibility Organism Ampicillin KITTY <=2 mcg/mL: Susceptible Escherichia coli Amoxicillin/Clavulanate KITTY 4/2 mcg/mL: Susceptible Escherichia coli Amikacin KITTY <=4 mcg/mL: Susceptible Escherichia coli Aztreonam KITTY <=1 mcg/mL: Susceptible Escherichia coli Ceftazidime KITTY <=0.5 mcg/mL: Susceptible Escherichia coli Ciprofloxacin KITTY <=0.5 mcg/mL: Susceptible Escherichia coli Ceftriaxone KITTY <=0.5 mcg/mL: Susceptible Escherichia coli Cefuroxime Sodium KITTY <=4 mcg/mL: Susceptible Escherichia coli Cefazolin KITTY <=1 mcg/mL: Susceptible Escherichia coli Cefepime KITTY <=0.5 mcg/mL: Susceptible Escherichia coli Nitrofurantoin KITTY <=16 mcg/mL: Susceptible Escherichia coli Cefoxitin KITTY <=4 mcg/mL: Susceptible Escherichia coli Gentamicin KITTY <=1 mcg/mL: Susceptible Escherichia coli Imipenem KITTY <=0.25 mcg/mL: Susceptible Escherichia coli Levofloxacin KITTY <=1 mcg/mL: Susceptible Escherichia coli Meropenem KITTY <=0.125 mcg/mL: Susceptible Escherichia coli Tobramycin KITTY 1 mcg/mL: Susceptible Escherichia coli Ampicillin/Sulbactam KITTY 4/2 mcg/mL: Susceptible Escherichia coli Trimethoprim/Sulfamethoxazole KITTY <=0.5/9.5 mcg/mL: Susceptible Escherichia coli Tetracycline KITTY <=1 mcg/mL: Susceptible Escherichia coli Piperacillin/Tazobactam KITTY <=2/4 mcg/mL: Susceptible Escherichia coli Ertapenem KITTY <=0.125 mcg/mL: Susceptible Escherichia coli Tigecycline KITTY <=0.5 mcg/mL: Susceptible Escherichia coli Performing Organization Address City/State/[place] [address] PATHOLOGY AND [place] [address] HOSPITAL * CRITICAL CARE (01/04/2018 10:04 AM RAG PRODUCTION WORKER) Narrative Performed At Nikki Bautista MD 01/06/20189:58 AM Critical Care Performed by: Nikki Bautista MD Authorized by: Nikki Bautista MD Critical care provider statement: Critical care time (minutes):45 Critical care time was exclusive of:Separately billable procedures and treating other patients Critical care was necessary to treat or prevent imminent or life-threatening deterioration of the following conditions:Circulatory failure Critical care was time spent personally by me on the following activities:Development of treatment plan with patient or surrogate, discussions with consultants, evaluation of patient's response to treatment, examination of patient, ordering and performing treatments and interventions, ordering and review of laboratory studies, ordering and review of radiographic studies, pulse oximetry, re-evaluation of patient's condition and obtaining history from patient or surrogate * OR [place] > I Hour (12/28/2017 9:00 AM RAG PRODUCTION WORKER) Specimen Narrative Performed At EXAMINATION:OR [place] 1 HOUR [facility] C-arm fluoroscopy was requested in [place]. SPINAL CORD STIMULATOR OR 10 [place]LEY 6 17.9 sec 3.78 mGy IMPRESSION: Separate operative report will be issued by the physician performing the procedure. [id number] Procedure Note Hm Interface, Radiology Results Incoming - 12/28/2017 10:29 AM RAG PRODUCTION WORKER EXAMINATION: [place] 1 HOUR C-arm fluoroscopy was requested in [place]. SPINAL CORD STIMULATOR OR 10 [place] 6 17.9 sec 3.78 mGy IMPRESSION: Separate operative report will be issued by the physician performing the procedure. [id number] Performing Organization Address [facility] Phone Number [facility] [address] [place] [address] * TSH reflex to T4 (12/19/2017 11:45 AM RAG PRODUCTION WORKER) TSH 0.046 (L) 0.450 - 4.500 uIU/mL [facility] Specimen Blood Narrative Performed At Performed at:[address] [place] [address] [id number] Cargo Surveyor: Say Elder MD, Phone:[phone] Performing Organization Address [facility] Phone Number [facility] * URINALYSIS, COMPLETE, WITH REFLEX TO CULTURE (12/19/2017 11:41 AM RAG PRODUCTION WORKER) Specific 1.017 1.005 - 1.030 [facility] gravity, urine pH, urine 5.5 5.0 - 7.5 [facility] Color, UA Yellow Yellow [facility] Appearance Clear Clear [facility] WBC esterase, Negative Negative [facility] urine Protein, UA Negative Negative/Trace [facility] Glucose, urine Negative Negative [facility] Ketones, UA Negative Negative [facility] Occult blood, Negative Negative [facility] urine Bilirubin, UA Negative Negative [facility] Urobilinogen, 0.2 0.2 - 1.0 mg/dL [facility] UA Nitrite, UA Negative Negative [facility] Microscopic CommentComment: Microscopic [facility] examination follows if indicated. Microscopic See below:Comment: Microscopic [facility] examination was indicated and was performed. Urinalysis CommentComment: This specimen [facility] reflex will not reflex to a Urine Culture. 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 [facility] Bacteria, UA Few None seen/Few [facility] Specimen Narrative Performed At Performed at: [facility] [address] [place], [place] [id number] Cargo Surveyor: Say Elder MD, Phone:[phone] Performing Organization Address [facility] [place] Phone Number [facility] * XR Lumbar Spine Ap Lateral Flexion And Extension (09/20/2017 3:03 PM CDT) Specimen Narrative Performed At EXAMINATION:XR LUMBAR SPINE AP LATERALFLEXION AND EXTENSION [facility] CLINICAL HISTORY:M54.42 Lumbago with sciaticaleft side, M54.41 Lumbago with sciaticaright side, Chronic low back pain COMPARISON:None. FINDINGS: 4 view examination of the lumbar spine obtained in standing position. Neutral lateral, extension lateral, and flexion lateral images obtained in addition to AP standing. There are 5 lumbar vertebrae with partial sacralization of the fifth lumbar segment. There is pseudoarthrosis to the left at L5-S1. 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 Lordosis is well maintained. Moderate disc space narrowing L4-5 and L5-S1. No spondylolisthesis. No anterior translation on flexion or extension lateral views. No compressive abnormality. IMPRESSION: Partial sacralization of L5 to the left with pseudoarthrosis Moderate disc space narrowing L4-5 and L5-S1 No abnormal translation on flexion or extension views No compression [id number] Procedure Note Hm Interface, Radiology Results Incoming - 09/20/2017 3:18 PM CDT EXAMINATION: XR LUMBAR SPINE AP LATERAL FLEXION AND EXTENSION CLINICAL HISTORY: M54.42 Lumbago with sciatica left side, M54.41 Lumbago with sciatica right side, Chronic low back pain COMPARISON: None. FINDINGS: 4 view examination of the lumbar spine obtained in standing position. Neutral lateral, extension lateral, and flexion lateral images obtained in addition to AP standing. There are 5 lumbar vertebrae with partial sacralization of the fifth lumbar segment. There is pseudoarthrosis to the left at L5-S1. 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 Lordosis is well maintained. Moderate disc space narrowing L4-5 and L5-S1. No spondylolisthesis. No anterior translation on flexion or extension lateral views. No compressive abnormality. IMPRESSION: Partial sacralization of L5 to the left with pseudoarthrosis Moderate disc space narrowing L4-5 and L5-S1 No abnormal translation on flexion or extension views No compression [id number] Performing Organization Address City/State/Zipcode Phone Number [facility] [address] [place] [address] after 07/30/2017 Insurance Type Payer Benefit Subscriber ID Effective Phone Address Plan / Dates Group PPO BCBS ANTHEM xxxxxxxxxxxx [id number] BLUE CROSS resent Advance Directives Patient has advance care planning documents, and code status on file. For more i nformation, please contact: Zander Carbone [address] [place] [address] Date Inactivated Comments Code Status Date Activated 02/15/2017 8:29 PM Full Code 02/13/2017 5:45 PM Code Status decision reached by: Patient
[2018-07-31] MEDS ORDERED: CEFAZOLIN SOD 1 GM/NS 50ML 100 ML IV ONE (06:16)
[2018-07-31] MEDS ORDERED: LORAZEPAM0.5 MG PO (06:32)
[2018-07-31] MEDS ORDERED: LEXAPRO10 MG PO (06:32)
[2018-07-31] MEDS ORDERED: ZOLPIDEM TARTRAT5 MG PO (06:32)
[2018-07-31] MEDS ORDERED: BUPIVACAINE 0.25% 30ML SDV INJ ONE (06:36)
[2018-07-31] MEDS ORDERED: ACETAMINOPHEN 1000 MG/100 ML 100 ML IV ONE (06:50)
[2018-07-31] MEDS ORDERED: SCOPOLAMINE 1.5 MG PATCH ONE (06:50)
[2018-07-31] MEDS ORDERED: IBUPROFEN 800MG/ 250ML 250 ML IV ONE (06:50)
[2018-07-31] MEDS ORDERED: LIDOCAINE HCL (LTA) 4 ML SOLN ONE (06:50)
[2018-07-31] MEDS: LACTATED RINGER'S 1,000 ML IV SCH ×4 (07:28→23:28)
[2018-07-31] MEDS ORDERED: MORPHINE SULFATE 2 MG/ML SYR 1ML IV PRN (07:30)
[2018-07-31] MEDS ORDERED: SCOPOLAMINE 1.5 MG PATCH TOP SCH (07:30)
[2018-07-31] MEDS ORDERED: ONDANSETRON HCL INJ 2MG/ML 2ML 2 MG/ML VIAL IV PRN (07:30)
--- OUTSIDE RECORDS SUMMARY | 2018-07-31 09:44 | XMS REPORT | Clinical Summary ---
Author Author [facility] Organization [facility] Address Unknown Phone Unavailable Care Team Providers Care Director Risk Name Role Phone Edgar Jones MD PCP [...] needed for constipation. 01/26/2018 Discontinued FLUCELVAX QUAD 5631-5142 0 60 mcg (15 mcg x 4)/0.5 [...] BY MOUTH condition EVERY NIGHT 05/08/2018 Discontinued KNAPSACK SPRAYER THYROID 30 mg tablet 1 tablet 2 daily. 9 05/08/2018 Discontinued KNAPSACK SPRAYER THYROID 15 mg tablet 1 tablet 2 [...] natural resolution and advised against flying to [facility] at this time. 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 [...] condition (Primary Dx) 01/25/2018 Telephone Internal Medicine Ruiz Johnston MD Yerramadha, Muralidhar Reddy, MD Chest [...] 37 C (98.6 F) 01/24/2018 7:56 PM COLOR PASTE MIXER Respiratory Rate 18 07/13/2018 1:42 PM CDT [...] Lot Implanted Type Area Manufactur er 10/10/2019 [place] [id number] / / [id number] Wavewriter Implantable Pulse G - IPM N/A: Thoracic Yoozon [id number] IMPLANT SCIENTIFIC Implanted: Qty: 1 on 12/28/2017 by DEVICES - Jean-Paul Godoy MD NEUROMODUL ATION 07/14/2019 [place] [id number] / / [id number] Kit Surgl Lead 50cm 32contact - IPM N/A: Thoracic Yoozon [id number] IMPLANT SCIENTIFIC Implanted: Qty: 1 on 12/28/2017 by JOAN - Jean-Paul Godoy MD NEUROMODUL ATION Stimulator Stimulator Surgical Implants - Breast Surgical Implants - Breast 05/17/2018 FGS [id number] / / [id number] Capsule Ph W/ Ds Mckay - [id number] Surgical N/A: N/A GIVEN Implanted: 06/22/2017 (Quantity not Implants; IMAGING on file) Expanders; Extenders; Surgical Wires Procedures Comments Procedure Name Priority Date/Time Associated Diagnosis US DUPLEX VENOUS LOWER Routine 05/24/2018 Edema, unspecified type EXTREMITY BILATERAL 5:57 PM CDT XR CHEST 2 VW Routine 02/16/2018 Acute bronchitis, 12:16 PM [employer] PASTE M[employer]ER unspecified organism CT ANGIOGRAM PE CHEST STAT 01/24/2018 7:04 PM COLOR PASTE MIXER TROPONIN Timed 01/24/2018 4:58 PM COLOR PASTE MIXER US DUPLEX VENOUS LOWER STAT 01/24/2018 EXTREMITY BILATERAL 3:45 PM [employer] PASTE MIXER HCG QUALITATIVE, URINE Routine 01/24/2018 SCREEN 2:45 PM [employer] PASTE MIXER URINALYSIS SCREEN AND Routine 01/24/2018 MICROSCOPY, WITH REFLEX 2:45 PM COLOR PASTE MIXER TO CULTURE XR CHEST 1 VW PORTABLE STAT 01/24/2018 2:36 PM COLOR PASTE MIXER ECG ED PRELIMINARY Routine 01/24/2018 INTERPRETATION 2:12 PM COLOR PASTE MIXER ESTIMATED GFR STAT 01/24/2018 1:50 PM COLOR PASTE MIXER PROTHROMBIN TIME WITH INR STAT 01/24/2018 1:50 PM COLOR PASTE MIXER PARTIAL THROMBOPLASTIN STAT 01/24/2018 TIME (PTT) 1:50 PM COLOR PASTE MIXER B NATRIURETIC PEPTIDE STAT 01/24/2018 1:50 PM COLOR PASTE MIXER TROPONIN STAT 01/24/2018 1:50 PM COLOR PASTE MIXER COMPREHENSIVE METABOLIC STAT 01/24/2018 PANEL 1:50 PM COLOR PASTE MIXER HC COMPLETE BLD COUNT STAT 01/24/2018 W/AUTO DIFF 1:50 PM COLOR PASTE MIXER ECG 12-LEAD STAT 01/24/2018 1:42 PM COLOR PASTE MIXER US DUPLEX VENOUS LOWER STAT 01/05/2018 EXTREMITY BILATERAL 6:00 PM COLOR PASTE MIXER ECHOCARDIOGRAM 2D Routine 01/05/2018 COMPLETE W MMODE SPECTRAL 11:11 AM COLOR PASTE MIXER COLOR DOPPLER ([id number]) TROPONIN Timed 01/04/2018 10:00 PM [employer] PASTE MIXER TROPONIN Timed 01/04/2018 6:[address] ANGIOGRAM PE CHEST STAT 01/04/2018 12:[address] ABDOMEN PELVIS W STAT 01/04/2018 CONTRAST 12:12 PM COLOR PASTE MIXER ESTIMATED GFR STAT 01/04/2018 10:35 AM COLOR PASTE MIXER B NATRIURETIC PEPTIDE STAT 01/04/2018 10:35 AM COLOR PASTE MIXER TROPONIN STAT 01/04/2018 10:35 AM COLOR PASTE MIXER CREATINE KINASE, TOTAL STAT 01/04/2018 (CPK) 10:35 AM COLOR PASTE MIXER COMPREHENSIVE METABOLIC STAT 01/04/2018 PANEL 10:35 AM COLOR PASTE MIXER HC COMPLETE BLD COUNT STAT 01/04/2018 W/AUTO DIFF 10:35 AM COLOR PASTE MIXER XR CHEST 2 VW STAT 01/04/2018 10:30 AM COLOR PASTE MIXER URINALYSIS SCREEN AND STAT 01/04/2018 MICROSCOPY, WITH REFLEX 10:28 AM COLOR PASTE MIXER TO CULTURE GRAM STAIN STAT 01/04/2018 10:28 AM COLOR PASTE MIXER URINE CULTURE STAT 01/04/2018 10:28 AM COLOR PASTE MIXER ECG ED PRELIMINARY Routine 01/04/2018 INTERPRETATION 10:04 AM COLOR PASTE MIXER [place] CRITICAL CARE, E/M Routine 01/04/2018 30-74 MINUTES 10:04 AM COLOR PASTE MIXER ECG 12-LEAD STAT 01/04/2018 9:59 AM COLOR PASTE MIXER OR FL > 1 HOUR Routine 12/28/2017 9:00 AM COLOR PASTE MIXER [place] AN ELECTIVE Routine 12/28/2017 ENDOTRACHEAL AIRWAY 7:55 AM COLOR PASTE MIXER Procedure Note - Tran Dougherty CRNA - 12/28/2017 7:55 AM COLOR PASTE MIXER ANESTHESIA INTUBATION Date/Time: 12/28/2017 7:36 AM Performed [...] T4F Routine 12/19/2017 Pre-operative clearance 11:45 AM COLOR PASTE MIXER for spinal stimulator placement for chronic lumbar dorsalgia. 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 PROTHROMBIN TIME WITH INR Routine 12/19/2017 Pre-operative clearance 11:41 AM COLOR PASTE MIXER for spinal stimulator placement for chronic lumbar dorsalgia. PARTIAL THROMBOPLASTIN Routine 12/19/2017 Pre-operative clearance TIME (PTT) 11:41 AM COLOR PASTE MIXER for spinal stimulator placement for chronic lumbar dorsalgia. COMPREHENSIVE METABOLIC Routine 12/19/2017 Pre-operative clearance PANEL 11:41 AM COLOR PASTE MIXER for spinal stimulator placement for chronic lumbar dorsalgia. CBC WITH PLATELET AND Routine 12/19/2017 Pre-operative clearance DIFFERENTIAL 11:41 AM COLOR PASTE MIXER for spinal stimulator placement for chronic lumbar dorsalgia. XR CHEST 2 VW Routine 12/19/2017 Pre-operative clearance 11:26 AM COLOR PASTE MIXER XR LUMBAR SPINE AP Routine 09/20/2017 Chronic [...] period is included. Specimen Narrative Performed At [facility] There is no evidence of DVT in bilateral lower extremities. Performing Organization Address City/State/Zipcode Phone Number [facility] [address] [place] [address] * XR Chest 2 Vw (02/16/2018 12:16 PM COLOR PASTE MIXER) Only the most recent of 3 results within the time period is included. Specimen Narrative Performed At EXAMINATION:XR CHEST 2 VW [facility] CLINICAL HISTORY: 42 years [id number] Acute bronchitisunspecified, acute bronchitis COMPARISON:01/24/2018 IMPRESSION: 1.The heart size is normal. The aorta is minimally atherosclerotic. 2.There is no evidence of pulmonary edema. There are no focal consolidations or effusions. 3.Moderate hiatal hernia. 4.Dorsal column stimulator device overlies the mid thoracic spine. Procedure Note Interface, Radiology Results Incoming - 02/16/2018 1:12 PM COLOR PASTE M[employer]ER EXAMINATION: XR CHEST 2 VW CLINICAL HISTORY: [...] Organization Address City/State/Zipcode Phone Number [facility] [address] [place] [address] * CT Angiogram Pe Chest (01/24/2018 7:04 PM COLOR PASTE MIXER) Only the most recent of 2 results within the time period is included. Specimen Narrative Performed At EXAMINATION: [facility] CT ANGIOGRAM PE CHEST CLINICAL HISTORY: left [...] is seen. Spine stimulator device again noted. [facility]-[id number] Procedure Note Interface, Radiology Results Incoming - 01/24/2018 7:12 PM COLOR PASTE MIXER EXAMINATION: CT ANGIOGRAM PE CHEST CLINICAL HISTORY: [...] is seen. Spine stimulator device again noted. [facility]-[id number] Performing Organization Address City/[facility]/Zipcode Phone Number [facility] [address] [place] [address] * Troponin (01/24/2018 4:58 PM COLOR PASTE MIXER) Only the most recent of 5 results within the time period is included. [facility] Troponin <0.300 0.000 - 0.300 ng/mL [facility] Comment: [facility] 0.30 - 1.49 [facility] ng/mlMay indicate increased risk of acute coronary syndrome. >=1.5 ng/ml Consistent with acute myocardial infarction. The diagnostic value of a single normal or non-diagnostic result is questionable.Serial samples at 2-6 hour intervals are required to rule out acute myocardial injury. Specimen Plasma specimen Performing Organization Address City/[facility] Servicescode [place] [address] [place] [address] PATHOLOGY AND GENOMIC MEDICINE [facility]LY [facility] [address] [place] [address] [facility] * Urinalysis screen and microscopy, with reflex to culture (01/24/2018 2:45 PM COLOR PASTE MIXER) Only the most recent of 2 results within the time period is included. Pathologist [facility] Specimen site Clean catch [facility] [place] Color, UA Yellow [facility] [place] Appearance, UA Clear [facility] [place] Specific 1.013 1.001 - 1.035 [facility] gravity, UA [facility] pH, UA 6.0 5.0 - 8.[address] [facility] Protein, UA Negative Negative [facility] [place] Glucose, UA Negative Negative [facility] [place] Ketones, UA Negative Negative [facility] [place] Bilirubin, UA Negative Negative [facility] Blood, UA Negative Negative [facility] [place] Nitrite, UA Negative Negative [facility] [place] Urobilinogen, Negative <2.0 [facility] Leukocyte Negative Negative [facility] esterase, UA [facility] Epithelial Few /HPF [facility] cells, UA [facility] Round Few 0 - 1 /HPF [facility] epithelial [facility] cells, [facility] WBC, UA 0-5 0 - 4 /HPF [facility] RBC, UA 0-5 0 - 5 /HPF [facility] [place] Bacteria, UA Trace None seen [facility] Yeast, UA None seen [facility] [place] Yeast with None seen [facility] Specimen Urine Performing Organization Address [facility] Servicescosd Phone Number [address] [place] [address] PATHOLOGY AND GENOMIC MEDICINE [address] * hCG qualitative, urine screen (01/24/2018 2:45 PM COLOR PASTE MIXER) hCG Negative Negative [facility] qualitative, Comment: [facility] urine The manufacturers stated [facility] sensitivity of HcG test for serum is >/=10 mIU/ml and urine is >/=20mIU/ml. Specimen Urine Performing Organization Address [facility] Servicescode Phone Number [address] [place] [address] PATHOLOGY AND GENOMIC MEDICINE [address] * XR Chest 1 Vw Portable (01/24/2018 2:36 PM COLOR PASTE MIXER) Specimen Narrative Performed At EXAMINATION:XR CHEST 1 [...] hiatal hernia no acute finding is visualized [id number] Procedure Note Hm Interface, Radiology Results Incoming - 01/24/2018 2:48 PM COLOR PASTE MIXER EXAMINATION: XR CHEST 1 VW PORTABLE CLINICAL [...] hiatal hernia no acute finding is visualized [id number] Performing Organization Address City/State/Zipcode Phone Number [facility] [address] [place] [address] * ECG ED Preliminary Interpretation - Not an Order (01/24/2018 2:12 PM COLOR PASTE MIXER) Only the most recent of 2 results within the time period is included. Narrative Performed At Ruiz Johnston MD 01/25/20181:54 AM ECG ED Preliminary Interpretation - Not an Order Performed by: Ruiz Johnston MD Authorized by: Ruiz Johnston MD ECG reviewed by ED Physician in the absence of a superintendent greens: yes (read at 1342) Previous ECG: Previous ECG:Unavailable Interpretation: Interpretation: normal Rate: ECG rate:78 ECG rate assessment: normal Rhythm: Rhythm: sinus rhythm Ectopy: Ectopy: none QRS: QRS axis:Normal QRS intervals:Normal Conduction: Conduction: normal ST segments: ST segments:Normal T waves: T waves: inverted Inverted:AVR, V1 and V2 * Estimated GFR (01/24/2018 1:50 PM COLOR PASTE MIXER) Only the most recent of 2 results within the time period is included. Pathologist [facility] Estimated GFR 77 mL/min/1.73 m2 [facility] Comment: [facility] rpretation G1 >=90 Normal or high G2 60-89Mildly decreased [id number] Mildly to moderately decreased [id number] Moderately to severely decreased G4 15-29Severely decreased G5 <15Kidney failure The eGFR was calculated using the Chronic Kidney Disease Epidemiology Collaboration (CKD-EPI) equation. Interpretation is based on recommendations of the National Kidney Foundation-Kidney Disease Outcomes Quality Initiative (NKF-KDOQI) published in 2014. Specimen Plasma specimen Performing Organization Address [facility] Phone Number [address] * Partial thromboplastin time, activated (01/24/2018 1:50 PM COLOR PASTE MIXER) Only the most recent of 2 results within the time period is included. Pathologist [facility] PTT 33.7 23.0 - 36.0 sec [facility] Comment: [facility] PTT therapeutic range for [facility] unfractionated heparin is 61.0-112.0 seconds which corresponds to Anti-Xa 0.3-0.7 U/ml. Specimen Blood Performing Organization Address [facility] Phone Number [address] * Prothrombin time with INR (01/24/2018 1:50 PM COLOR PASTE MIXER) Only the most recent of 2 results within the time period is included. Pathologist [facility] Prothrombin 12.2 11.5 - 14.5 sec [facility] INR 0.9 [facility] Comment: [facility] The International Normalized [facility] Ratio (INR) is a therapeutic monitoring tool for patients who are stable on oral anticoagulant therapy. An INR of 2.0-3.0 is suggested for deep vein thrombosis/pulmonary embolism. Specimen Blood Performing Organization Address [facility] Phone Number [address] * CBC with platelet and differential (01/24/2018 1:50 PM COLOR PASTE MIXER) Only the most recent of 3 results within the time period is included. Pathologist [facility] WBC 6.71 4.50 - 11.00 k/uL [facility] [place] RBC 3.89 (L) 4.20 - 5.50 m/uL [facility] [place] HGB 10.7 (L) 12.0 - 16.0 g/dL [facility] [place] HCT 34.1 (L) 37.0 - 47.0 % [facility] [place] MCV 87.7 82.0 - 100.[address] [facility] MCH 27.5 27.0 - 34.[address] [facility] MCHC 31.4 31.0 - 37.0 g/dL [facility] [place] RDW - SD 49.4 37.0 - 55.[address] [facility] MPV 10.4 8.8 - 13.[address] [facility] [place] Platelet count 476 (H) 150 - 400 k/uL [facility] [place] Nucleated RBC 0.00 /[address] [facility] [place] Neutrophils 41.7 39.0 - 69.0 % [facility] [place] Lymphocytes 36.8 25.0 - 45.0 % [facility] [place] Monocytes 12.8 (H) 0.0 - 10.0 % [facility] [place] Eosinophils 7.6 (H) 0.0 - 5.0 % [facility] [place] Basophils 1.0 0.0 - 1.0 % [facility] Specimen Blood Performing Organization Address City/[facility]/Zipcode Phone Number [address] [place] [address] PATHOLOGY AND GENOMIC MEDICINE [address] * B natriuretic peptide (01/24/2018 1:50 PM COLOR PASTE MIXER) Only the most recent of 2 results within the time period is included. BNP 41 0 - 100 pg/mL [facility] Specimen Blood Performing Organization Address City/[facility] Services[facility] Phone Number [address] [place] [address] PATHOLOGY AND GENOMIC MEDICINE [address] * Comprehensive metabolic panel (01/24/2018 1:50 PM COLOR PASTE MIXER) Only the most recent of 3 results within the time period is included. [facility] Sodium 140 135 - 148 mEq/L [facility] Potassium 3.9 3.5 - 5.0 mEq/L [facility] [place] Chloride 100 98 - 112 mEq/L [facility] CO2 29 24 - 31 mEq/L [facility] Anion gap 11@ANIO 7 - 15 mEq/L [facility] BUN 13 6 - 20 mg/dL [facility] Creatinine 0.90 0.50 - 0.90 mg/dL [facility] Glucose 84 65 - 99 mg/dL [facility] Calcium 9.7 8.3 - 10.2 mg/dL [facility] Protein 7.5 6.3 - 8.3 g/dL [facility] Comment: [facility] 4.6-7.0 g/dL 1 week 4.4-7.6 g/dL 7 months-1year 5.1-7.3 g/dL 1-2 years5.6-7 .5 g/dL >3 years6.0-8 .0 g/dL 18-150 6.3-8.3 g/dL Albumin 4.2 3.5 - 5.0 g/dL [facility] A/G ratio 1.3 0.7 - 3.[address] [facility] Alkaline 94 35 - 104 U/L [facility] phosphatase [facility] AST 22 10 - 35 U/L [facility] [place] ALT 20 5 - 50 U/L [facility] [place] Total bilirubin <0.2 0.0 - 1.2 mg/dL [facility] Specimen Plasma specimen Performing Organization Address City/State/Zipcode Phone Number [facility] [id number] [place] [address] [place] [address] PATHOLOGY AND GENOMIC MEDICINE [facility] [id number] [place] [address] [place] [address] [facility] * ECG 12 lead (01/24/2018 1:42 PM COL[employer] PASTE MIXER) Only the most recent of 2 results within the time period is included. Pathologist [facility] Ventricular 78 HM MUSE rate Atrial rate 78 [facility] MUSE [place] interval 178 [facility] MUSE QRSD interval 76 [facility] MUSE QT interval 390 [facility] MUSE QTC interval 444 [facility] MUSE P axis 1 3 [facility] MUSE QRS axis 1 7 [facility] MUSE T wave axis 30 [facility] MUSE EKG impression Normal sinus rhythm-Normal [facility] MUSE ECG-In automated comparison with ECG of 04-JAN-2018 09:59,-No significant change was found- Specimen Narrative Performed At Performing Organization Address City/State/Zipcode Phone Number [facility] MUSE [address] [place] [address] * Echocardiogram complete w contrast and 3D if needed (01/05/2018 11:11 AM COL[employer] PASTE MIXER) Velocity Ratio 0.78 m/s [facility] (V1/V2) [...] LV EF,BP 57.43 % [facility] [place],d A2C 6.22 cm [facility] [place],d A4C 6.66 cm [facility] [place],s A2C 4.71 cm [facility] [place],s A4C 5.27 cm [facility] LV SV,A2C [...] Address City/State/Zipcode Phone Number [facility] [address] [place] [address] * CT Abdomen Pelvis W Contrast (01/04/2018 12:12 PM COLOR PASTE MIXER) Specimen Narrative Performed At EXAMINATION:CT ABDOMEN PELVIS [...] left. 4. Possible small follicle left ovary [id number] Procedure Note Interface, Radiology Results Incoming - 01/04/2018 1:23 PM COLOR PASTE MIXER EXAMINATION: CT ABDOMEN PELVIS W CONTRAST CLINICAL [...] left. 4. Possible small follicle left ovary [id number] Performing Organization Address [facility]/Zipcode Phone Number [facility] [address] [place] [address] * Creatine kinase, total (CPK) (01/04/2018 10:35 AM COLOR PASTE MIXER) Pathologist [facility] Creatine kinase 94 26 - 192 U/L [facility] [place] Specimen Plasma specimen Performing Organization Address [facility]/Zipcode Phone Number [facility] DEPARTMENT [address] [place] [address] PATHOLOGY AND GENOMIC MEDICINE [address] * Gram stain (01/04/2018 10:28 AM COLOR PASTE MIXER) Pathologist [facility] Gram stain Few WBC's ALEXANDRE result Occasional Gram negative rods [facility]ISM Comment: HOSPITAL Specimen Information Specimen Source: Urine Specimen Site: Clean catch Specimen Urine Performing Organization Address [facility]/Zipcode Phone Number [facility] DEPARTMENT OF [address] [place] [address] PATHOLOGY AND GENOMIC MEDICINE [address] * Urine culture (01/04/2018 10:28 AM COLOR PASTE MIXER) Pathologist [facility] Urine culture Escherichia coli ALEXANDRE isolate >10-5 cfu/ml [facility] ([facility] Comment: Specimen Information Specimen Source: [...] coli Performing Organization Address City/State/[place] [address] PATHOLOGY [place] [address] HOSPITAL * CRITICAL CARE (01/04/2018 10:04 AM COL[employer] PASTE MIXER) Narrative Performed At Nikki Bautista MD 01/06/20189:58 [...] [place] > I Hour (12/28/2017 9:00 AM COL[employer] PASTE MIXER) Specimen Narrative Performed At EXAMINATION:OR [place] 1 HOUR [facility] C-arm fluoroscopy was requested in OR. SPINAL CORD STIMULATOR OR 10 [place] 6 17.9 sec 3.78 mGy IMPRESSION: Separate operative report will be issued by the physician performing the procedure. [id number] Procedure Note Hm Interface, Radiology Results Incoming - 12/28/2017 10:29 AM COLOR PASTE MIXER EXAMINATION: OR [place] 1 HOUR C-arm fluoroscopy was requested in OR. SPINAL CORD STIMULATOR OR 10 [place] 6 17.9 sec 3.78 mGy IMPRESSION: Separate operative report will be issued by the physician performing the procedure. [id number] Performing Organization Address City/[facility] Phone Number [facility] [address] [place] [address] * TSH reflex to T4 (12/19/2017 11:45 AM COLOR PASTE MIXER) TSH 0.046 (L) 0.450 - 4.500 uIU/mL [facility] Specimen Blood Narrative Performed At Performed at:[address] [place] [address] [id number] Certified Medication Aide: Say Elder MD, Phone:[phone] Performing Organization Address City/[facility] Services[facility] Phone Number [facility] * URINALYSIS, COMPLETE, WITH REFLEX TO CULTURE (12/19/2017 11:41 AM COLOR PASTE MIXER) Specific 1.017 1.005 - 1.030 [facility] gravity, [...] Culture. Specimen Narrative Performed At Performed at: [facility] [address] [place], [place] [id number] Certified Medication Aide: Say Elder MD, Phone:[phone] Performing Organization Address [facility] Phone Number [facility] * Microscopic Examination (12/19/2017 11:41 AM COLOR PASTE MIXER) WBC, UA 0-5 0 - 5 /hpf [facility] RBC, UA 0-2 0 - 2 /hpf [facility] Epithelial 0-10 0 - 10 /hpf [facility] cells (non renal) Casts Present (A) None seen /lpf [facility] Cast type Hyaline casts N/A [facility] Mucus, UA Present Not Estab. [facility] Bacteria, UA Few None seen/Few [facility] Specimen Narrative Performed At Performed at: [facility] [address] [place], [place] [id number] Certified Medication Aide: Say Elder MD, Phone:[phone] Performing Organization Address [facility] Phone Number [facility] * XR Lumbar Spine [...] on flexion or extension views No compression [id number] Procedure Note Hm Interface, Radiology Results Incoming [...] on flexion or extension views No compression [id number] Performing Organization Address City/State/Zipcode Phone Number [facility] [address] [place] [address] after 07/30/2017 Insurance Type Payer Benefit Subscriber ID Effective Phone Address Plan / Dates Group PPO BCBS ANTHEM xxxxxxxxxxxx [id number] BLUE CROSS resent Advance Directives Patient has advance care planning documents, and code status on file. For more i nformation, please contact: Zander Carbone [address] [place] [address] Date Inactivated Comments Code Status Date Activated 02/15/2017 8:29 PM Full Code 02/13/2017 5:45 PM Code Status decision reached by: Patient
[2018-07-31] MEDS ORDERED: FENTANYL CITRATE/PF 100MCG/2 ML INJ ONE ×2 (09:49→18:40)
[2018-07-31] MEDS ORDERED: MEPERIDINE HCL INJ 25 MG/ML VIAL ONE ×2 (09:49→10:00)
[2018-07-31] MEDS ORDERED: MORPHINE SULFATE INJ 10 MG/ML ONE (10:00)
[2018-07-31] MEDS ORDERED: LORAZEPAM INJ 2 MG/ML VIAL ONE (10:14)
[2018-07-31] MEDS ORDERED: HYDROMORPHONE 2MG/ML 2 MG/ML ML ONE ×2 (10:50→11:33)
--- NOTE | 2018-07-31 11:05 | Diagnostic Imaging Report ---
Examination: Single AP view of the chest. COMPARISON: None. INDICATION: Chest pain post surgery, history of pulmonary embolus December 27, 2017 DISCUSSION: The lungs are well-inflated and without focal airspace consolidation, pleural effusion, or pneumothorax. Vague rounded density projecting over the right lung base may represent a breast implant. Correlate with prior surgical history. Spinal stimulator device projects over the mid thoracic vertebral column. Normal heart size with perihilar linear opacities likely reflecting subsegmental atelectasis. Right chest wall and bilateral lower cervical subcutaneous emphysema is presumably postsurgical. IMPRESSION: Linear perihilar opacities likely represent subsegmental atelectasis. No consolidation or pneumothorax. Presumed postsurgical right chest wall and bilateral lower cervical subcutaneous emphysema. Spinal stimulator device projects over the mid thoracic vertebral column. Signed by: Dr. Edgar Bacon M.D. on 07/31/2018 11:01 AM
--- NOTE | 2018-07-31 12:00 | NUR ---
Patient arrived from PACU, drowsy but arouses to verbal stimuli. Patient was able to transfer self from stretcher to bed. Trocar sites x8 intact with Dermabond. Vital signs are stable. Spouse in the room. SCD's on bilaterally. POC discussed. Patient instructed to call for assistance as needed and verbalized understanding. Bed in lowest position, locked and call hatch within reach.
[2018-07-31 12:08] VITALS: BP 127/71
[2018-07-31 12:11] VITALS: BP 127/71
[2018-07-31 12:20] VITALS: BP 127/71
--- NOTE | 2018-07-31 13:55 | NUR ---
Patient up and ambulating to bathroom with standby assistance.
--- NOTE | 2018-07-31 15:30 | NUR ---
Patient ambulating in hallway with daughter, tolerating well.
--- NOTE | 2018-07-31 15:42 | Operative Report ---
DATE OF PROCEDURE: 07/31/2018 SURGEON: Andres Banegas MD PREOPERATIVE DIAGNOSES: 1. Large paraesophageal hernia. 2. Gastroesophageal reflux disease. POSTOPERATIVE DIAGNOSES: 1. Large paraesophageal hernia. 2. Gastroesophageal reflux disease. PREOPERATIVE INDICATIONS: Treat disease, prevent complications related to large paraesophageal hernia. PROCEDURE: Laparoscopic paraesophageal hernia repair with Toupet fundoplication (CPT 12159). ANESTHESIA: General. PEDIATRIC MEDICAL ASSISTANT: Jaycob Vang, surgical corsetier (needed due to complexity of case). FLUIDS: 1400 mL of Crystalloid. ESTIMATED BLOOD LOSS: 75 mL. DRAINS: None. COMPLICATIONS: None. SPECIMENS: Hernia sac. GRAFTS: None. FINDINGS: 1. Large paraesophageal hernia. 2. Adhesions from previous hernia repair in the anterior abdominal wall. PROCEDURE IN DETAIL: The patient was brought to the operating room, was intubated and was intubated under general endotracheal anesthesia. She was positioned supine with both arms abducted and all pressure points were appropriately padded. She was sterilely prepped and draped in the usual fashion. A preprocedure pause was performed, identifying the patient, use of perioperative antibiotics, intended procedure, and staff surgeon. Access was gained via a 5 mm left subcostal incision using a Veress needle. Once the abdomen was insufflated, we noted adhesions from the omentum to the anterior abdominal wall from her previous ventral hernia repair. I placed an additional 5 mm trocars in the left lower quadrant and was able to lysis the adhesions carefully. Four additional trocars were placed in the standard position and a liver retractor was used to expose the hiatus and stomach. I immediately noted there was a large hiatal hernia with majority of the fundus and part of the body of the stomach herniated into the chest cavity. I began by dissection by incising the gastrohepatic ligament via pars flaccida technique. I then circumferentially dissected out the hernia sac from the right racquel of the diaphragm, continued to the arch of the diaphragm and then to the left racquel of the diaphragm as well as posteriorly. I did this over length of about 7 cm into the chest wall and was able to circumferentially dissect all the attachments. I was able to then excise large hernia sac and passed this off to the back table for pathology. I was able to reduce the esophagus to about 3 cm intraabdominal esophageal length. The hiatal hernia was then repaired posteriorly with interrupted 2-0 Surgidac suture as well as anteriorly, this was a good repair and knots were tied. I then performed a 180 degree, Toupet fundoplication using 2-0 Surgidac suture by suturing the fundus of the stomach on either end to the anterior surface of the esophagus. Once this was complete, I then placed posterior stitch from the fundus to the posterior crura in order to prevent reherniation. I also placed 2 gastropexy sutures in the distal greater curve of the stomach to the anterior abdominal wall using 2-0 Surgidac suture in order to prevent hernia recurrence. Once this was completed, we then achieved hemostasis. I closed the larger port site with 0-Vicryl suture using Bruno-Chantelle technique. We then verified hemostasis. We removed the trocars and desufflated the abdomen. A 30 mL of 0.25% bupivacaine was used both at the preperitoneal and incisional sites. Dermabond dressing was applied. We did close the incision sites with 4-0 Monocryl suture in subcuticular fashion prior to placing the Dermabond. All surgical sponges and instrument counts were correct. The patient tolerated the procedure well. Type of wound is type 1, clean and contaminant. MD MARIETTA Wynn/CARY /[id number]
[2018-07-31] MEDS ORDERED: CLONAZEPAM 0.5 MG TAB PO PRN (16:15)
[2018-07-31] MEDS ORDERED: LORAZEPAM 0.5 MG TAB PO PRN (16:15)
[2018-07-31] MEDS: HYDROCODONE/APAP 7.5MG-325MG 1 EA TAB PO PRN ×2 (16:15→20:45)
[2018-07-31 16:16] VITALS: BP 133/82
[2018-07-31] MEDS ORDERED: ONDANSETRON HCL 4 MG ORAL DISINTEGRATING TAB PO PRN ×2 (16:30)
[2018-07-31] MEDS: PANTOPRAZOLE SOD 40 MG TABEC PO SCH (16:38)
[2018-07-31] MEDS: FAMOTIDINE 20 MG TAB PO SCH (16:38)
[2018-07-31] MEDS ORDERED: ESCITALOPRAM OXALATE 10 MG TAB PO SCH (17:00)
[2018-07-31] MEDS ORDERED: ROCURONIUM BROMIDE 10 MG/ML 5ML VIAL ONE (17:55)
[2018-07-31] MEDS ORDERED: LIDOCAINE HCL 2% JELLY 5 ML TUBE ONE (17:55)
[2018-07-31] MEDS ORDERED: PROPOFOL IV EMULSION 10 MG/ML 20 ML VIAL ONE (17:55)
[2018-07-31] MEDS ORDERED: SEVOFLURANE INHAL SOLN 250 ML PEN BTL ONE (17:55)
[2018-07-31] MEDS ORDERED: NEOSTIGMINE 5 MG/5ML SYR ONE (17:55)
[2018-07-31] MEDS ORDERED: DEXAMETHASONE SOD PHOS INJ 4 MG/ML VIAL ONE (17:55)
[2018-07-31] MEDS ORDERED: LIDOCAINE HCL 2% LOCAL INJ 5 ML SDV VIAL INJ ONE (17:55)
[2018-07-31] MEDS ORDERED: ONDANSETRON HCL INJ 2MG/ML 2ML 2 MG/ML VIAL ONE (17:55)
[2018-07-31] MEDS ORDERED: GLYCOPYRROLATE INJ 1MG/ 5 ML SYR ONE (17:55)
[2018-07-31] MEDS: SUCRALFATE 1 GM TAB PO SCH ×2 (18:07→21:00)
[2018-07-31] MEDS ORDERED: MIDAZOLAM HCL 2 MG/2 ML VIAL ONE (18:40)
--- NOTE | 2018-07-31 19:00 | NUR ---
Report and walking rounds completed. Patient in bed with visitors at bedside. Call light within reach. Will continue to monitor.
--- NOTE | 2018-07-31 19:05 | NUR ---
REPORT GIVEN TO ONCOMING SHIFT. CALL SPAIN WITHIN REACH
[2018-07-31 20:00] VITALS: BP 140/83
[2018-07-31] MEDS ORDERED: ENOXAPARIN SOD INJ 40 MG/0.4 ML SYR SC SCH (20:00)
[2018-07-31] MEDS ORDERED: ZOLPIDEM TARTRATE 6.25 MG PO SCH (21:00)
[2018-07-31] MEDS ORDERED: ZOLPIDEM TARTRATE 5 MG TAB PO SCH (21:00)
[2018-07-31] MEDS: MORPHINE SULFATE INJ 4 MG/ML INJ 1ML IV PRN (23:15)
[2018-08-01] VITALS: BP 131/82
[2018-08-01] MEDS: HYDROCODONE/APAP 7.5MG-325MG 1 EA TAB PO PRN ×2 (00:45→04:45)
[2018-08-01] MEDS: MORPHINE SULFATE INJ 4 MG/ML INJ 1ML IV PRN (03:30)
[2018-08-01] MEDS: LACTATED RINGER'S 1,000 ML IV SCH (03:30)
[2018-08-01 04:00] VITALS: BP 150/95
--- NOTE | 2018-08-01 06:00 | NUR ---
In bed on phone with son and at bedside. No issues or concerns. Call light within reach. Will continue to monitor.
--- NOTE | 2018-08-01 06:58 | NUR ---
Walking rounds and report received. Patient is awake, alert with no complaints voiced. POC discussed. She was instructed to call for assistance as needed and verbalized understanding. AM assessment done. Call hatch within reach.
[2018-08-01 07:53] VITALS: BP 136/87
--- NOTE | 2018-08-01 08:42 | NUR ---
Progress note: S: No major complaints, lack of sleep over night O: AF, VSS Gen- no acute distress Abd- soft, incisions c/d/i A/P: POD 1, s/p Lap repair of giant paraesophageal hernia with Toupet fundoplication -Clears, fulls -Ambulate -DC home -Resume oral anticoagulant tomorrow x 2 weeks -F/u with me in 2 weeks
[2018-08-01] MEDS ORDERED: THYROID 60 MG TAB PO SCH ×2 (09:00)
[2018-08-01] MEDS: SUCRALFATE 1 GM TAB PO SCH (09:04)
[2018-08-01] MEDS: FAMOTIDINE 20 MG TAB PO SCH (09:04)
[2018-08-01] MEDS: PANTOPRAZOLE SOD 40 MG TABEC PO SCH (09:04)
[2018-08-01] MEDS ORDERED: TYLENOL WITH C1 EACH PO (09:17)
[2018-08-01] MEDS ORDERED: ZOFRAN4 MG PO (09:18)
--- NOTE | 2018-08-01 09:35 | NUR ---
Patient discharged home with written instructions and prescriptions. She verbalized understanding. IV removed, cath intact and small dressing applied. patient refused wheelchair and ambulated to front of hospital with staff and spouse at side. She stated, "I need to walk."
== END 2018-08-01 09:35 | disposition home or self-care (01) ==
LOC: OR 05:45 → PACU V 07:30 → IMCU 11:52
PROVIDERS: ADMIT Surgery; ATTEND Surgery
DX: K44.9 Diaphragmatic hernia without obstruction or gangrene (principal); K21.9 Gastro-esophageal reflux disease without esophagitis; I10 Essential (primary) hypertension; G47.33 Obstructive sleep apnea (adult) (pediatric)
CPT/HCPCS: 43281; 71045; 88302; 93005 ×2; G0378 ×2; J0131; J0690; J1100; J1170; J1650 ×2; J2001 ×2; J2060; J2175; J2250; J2270 ×3; J2405; J2704; J3490; J7121 ×2; Q0162; S0164 ×2; J3010